=== PATIENT | female | born 1985 | race Caucasian/White ===

== ENCOUNTER → 2016-10-17 | Outpatient (CLI) | payer OTHER ==
[~2016-10-17] MED LIST: ACETAMINOPHEN PO; ALBUTEROL17 GM INH; ALBUTEROL17 GM NEB; AMOXICILLIN PO; ASPIRIN81 M2 PO; BENZONATATE PO; DILANTIN PO; DOLOBID500 MG PO; EC-NAPROSYN500 MG PO; FLEXERIL PO; KEPPRA750 M1 PO; LIPITOR40 MG PO; METHADONE; METOPROLOL SUCC25 MG PO; NO MEDICATIONS; PEN-VEE K PO; PERCOCET 5/321 UDTAB PO; PHOSLO667 MG PO; PRENATAL MULTIV1 TA1 PO; TOPROL XL PO; ULTRACET TABLET1 TAB PO; VICODIN 5/500 T1 TAB PO; VISCOUS LIDOCAINE; ZITHROMAX PO; ZYVOX600 MG PO; [UNRECOGNIZED DRUG - CODE] PO
--- NOTE | ~2016-10-17 | US5 ---
[facility]. [facility] A Service of [facility] RADIOLOGY TEXT RESULTS PATIENT: ANDRES SANCHEZ LOCATION: [facility] : 85 UNIT #: [id number] AGE: [address]: Kory Martin MD SEX: F ORDER DR: [id number] [address] [address] [id number] O MR#: [id number] Acc #: [id number] NAME: ANDRES SANCHEZ : 1985 SEX: F STUDY DATE/TIME: 10/17/2016 9:14 UNIT: SG ROOM: STUDY DESCRIPTION: US Abdominal Complete Attending Physician: Kory Martin III, M.D. Referring Physician: Kory Martin III, M.D. Ordering Physician: Kory Martin III, M.D. Primary Care Physician: No Primary Care Physician MEDICAL IMAGING REPORT This report is preliminary unless electronic signature is present. EXAM Abdominal ultrasound complete 10/17/2016 HISTORY Hepatitis C. Observation for hepatocellular carcinoma. FINDINGS The liver is homogeneous in echotexture and demonstrates no cystic or solid mass lesions. The intra and extrahepatic bile ducts are not dilated. The gallbladder is normal with no evidence of cholelithiasis, wall thickening or pericholecystic fluid. The common duct measures 3 mm. The pancreas and spleen are normal. The spleen measures 12.2 cm in greatest diameter. The visualized portions of the abdominal aorta and inferior vena cava are within normal limits. The kidneys are normal bilaterally. IMPRESSION Negative abdominal ultrasound. Dictated by... Remberto Sheehan M.D. THIS IS AN ELECTRONICALLY VERIFIED REPORT Remberto Sheehan M.D. at 10/20/2016 10:35 AM ALYSA/will TD: 10/17/2016 22:22 JOB #: [id number] MEDICAL IMAGING REPORT
== END | disposition home or self-care (01) ==
LOC: SGUS 08:58
DX: B19.20 Unspecified viral hepatitis C without hepatic coma (principal)
CPT/HCPCS: 76700

== ENCOUNTER → 2016-12-30 | Outpatient (CLI) | payer OTHER ==
--- NOTE | ~2016-12-30 | CR139 ---
[facility]. [facility] A Service of [facility] RADIOLOGY TEXT RESULTS PATIENT: ANDRES SANCHEZ LOCATION: [facility] : 85 UNIT #: [id number] AGE: [address]: MUNIRA MATUTE MD SEX: F ORDER DR: [id number] [place] [id number] O MR#: [id number] Acc #: [id number] NAME: ANDRES SANCHEZ : 1985 SEX: F STUDY DATE/TIME: 12/30/2016 12:23 UNIT: [facility] ROOM: STUDY DESCRIPTION: CR Hand 2 Views Rt Attending Physician: Munira Matute M.D. Referring Physician: Munira Matute M.D. Ordering Physician: Munira Matute M.D. Primary Care Physician: No Primary Care Physician MEDICAL IMAGING REPORT This report is preliminary unless electronic signature is present. EXAM Right hand, 2 views, 12/30/2016, 1223 hours. CLINICAL HISTORY 31-year-old woman complaining of right third finger pain with tenderness at the PIP joint for 1 month. Smacked finger on door. COMPARISON None FINDINGS AP, lateral, and oblique views demonstrate overall normal bone density. There is mild soft tissue swelling at the PIP joint of the third finger. On the lateral view, there is a small fracture fragment along the palmar aspect of the third finger at the PIP joint adjacent to the proximal aspect of the middle phalanx. This is likely a small avulsion fracture. IMPRESSION Soft tissue swelling at the PIP joint 3rd finger with a small bone fragments seen along the palmar aspect of the proximal aspect of the middle phalanx at the PIP joint, likely a small avulsion fracture. No other fracture seen. STAT * RESULT Dictated by... Kristen Aleman M.D. THIS IS AN ELECTRONICALLY VERIFIED REPORT Kristen Aleman M.D. at 12/31/2016 9:36 AM [facility] A Service of [facility] RADIOLOGY TEXT RESULTS PATIENT: ANDRES SANCHEZ LOCATION: [facility] : 85 UNIT #: [id number] AGE: [address]: MUNIRA MATUTE MD SEX: F ORDER DR: ROBERTO/pradip TD: 12/30/2016 14:35 JOB #: [id number] MEDICAL IMAGING REPORT Page 1 of 1
== END | disposition home or self-care (01) ==
LOC: SRAD 11:59
DX: M79.644 Pain in right finger(s) (principal); M79.89 Other specified soft tissue disorders
CPT/HCPCS: 73120

== ENCOUNTER → 2017-04-15 | Outpatient (CLI) | payer OTHER ==
--- NOTE | ~2017-04-15 | US5 ---
[facility] A Service of [facility] RADIOLOGY TEXT RESULTS PATIENT: ANDRES SANCHEZ LOCATION: [facility] : 85 UNIT #: [id number] AGE: [address]: Kory Martin MD SEX: F ORDER DR: [id number] [place] [id number] O MR#: [id number] Acc #: [id number] NAME: ANDRES SANCHEZ : 1985 SEX: F STUDY DATE/TIME: 04/15/2017 8:40 UNIT: [facility] ROOM: STUDY DESCRIPTION: US Abdominal Complete Attending Physician: Kory Martin III, M.D. Referring Physician: Kory Martin III, M.D. Ordering Physician: Kory Martin III, M.D. Primary Care Physician: No Primary Care Physician MEDICAL IMAGING REPORT This report is preliminary unless electronic signature is present. EXAM Abdominal ultrasound INDICATIONS Hepatitis C for the past 2 years. Observation for cirrhosis and hepatocellular carcinoma. PROCEDURE Mooney-scale and Doppler imaging through the abdomen. COMPARISON 10/17/2016 FINDINGS Visualized portions of pancreas are unremarkable. The liver is not frankly cirrhotic by ultrasound. Liver measures 14.3 cm. No liver mass is seen on submitted images. Unremarkable gallbladder. Right kidney measures 10.3 cm and is normal. Common duct measures 5 mm. Submitted images abdominal aorta unremarkable. Left kidney measures 10.3 cm and is normal. The spleen measures 9.9 cm. IMPRESSION 1. Liver is not frankly cirrhotic in morphology and there is no liver mass on submitted images. Spleen is normal in size. 2. Common duct mildly prominent for the patient's age of 5 mm possibly normal for the patient. Correlate with laboratory values. Dictated by... Solis Jackson M.D. THIS IS AN ELECTRONICALLY VERIFIED REPORT Solis Jackson M.D. at 04/16/2017 7:03 AM [facility] A Service of [facility] RADIOLOGY TEXT RESULTS PATIENT: ANDRES SANCHEZ LOCATION: [facility] : 85 UNIT #: [id number] AGE: [address]: Kory Martin MD SEX: F ORDER DR: MUKUL/will TD: 04/16/2017 01:55 JOB #: [id number] MEDICAL IMAGING REPORT Page 1 of 1
== END | disposition home or self-care (01) ==
LOC: SGUS 08:38
DX: B18.2 Chronic viral hepatitis C (principal)
CPT/HCPCS: 76700